=== PATIENT | male | born 1945 | race Caucasian/White ===

== ENCOUNTER 2020-06-13 22:54 | Emergency (ER) | payer MEDICARE, OTHER ==
[~2020-06-13] VITALS: Ht 170.2 cm; Wt 92.4 kg
--- NOTE | 2020-06-13 22:58 | PHYS DOC ---
Past History Past Medical History: Bronchitis, COPD, Hypertension Past Medical History Ulcerative colitis Past Surgical History: Knee Replacement, Other Past Surgical History Reported nl heart cath 3 yrs ago- Smoking: Quit Greater Than 1 Year General Adult HPI: HPI: "... I have been really short of breath this past week...get winded.. just walki ng across the yard..or one flight of stairs.. I got bad lungs..I did quit smoking about a year ago.. but I still got the COPD.. and sometimes I have to use my inhaler ... Sometimes need a course of antibiotics or steroids but have not had to for a long time...".." I did get the COVID test at [facility]...".." the drive up one.. "..." I could not lay down tonight .. too s hort of breath..." Patient is a 74 year old male who presents with above hx and complaints of marked increase of dyspnea and nonproductive cough in the past week.. Does have a history of prior episodes of COPD exacerbation. Patient did quit smoking approximately a year ago. Patient reportedly had a chest x-ray that was abnormal [address] Gonzales felt was related to his heart. Subsequently underwent heart cath at the [facility]. Reportedly that heart cath showed no blockage or concerning cardiac abnormalities. Patient does have a history of hypertension, ulcerative colitis, arthritis,. Patient retired from the . Was exposed to agent orange. Over [id number] smoking history. The patient denies any recent travel outside the [place] area. No specific ill contacts. Patient did get flu vaccination this season. Patient not recently been on any antibiotics or steroids. Patient does use an Atrovent inhaler occasionally for COPD symptoms. Pt. follows with [facility]. Review of Systems: Review of Systems: Constitutional: Denies fever or chills Eyes: Denies change in visual acuity HENT: Denies nasal congestion or sore throat Respiratory: Complains of cough and shortness of breath Cardiovascular: Denies chest pain or edema GI: Denies abdominal pain, nausea, vomiting, bloody stools or diarrhea : Denies dysuria Musculoskeletal: Denies back pain or joint pain Integument: Denies rash Neurologic: Denies headache, focal weakness or sensory changes Endocrine: Denies polyuria or polydipsia Lymphatic: Denies swollen glands Psychiatric: Denies depression or anxiety Family History: Family History: Noncontributory to presentation Current Medications: Current Meds: See nursing for home meds Allergies: Allergies: Meperidine Physical Exam: PE: Constitutional: Moderate acute distress, non-toxic appearance. [] HENT: Normocephalic, atraumatic, bilateral external ears normal, oropharynx moist, no oral exudates, nose normal. [] Eyes: PERRLA, EOMI, conjunctiva normal, no discharge. [] Neck: Normal range of motion, no tenderness, supple, no stridor. [] Cardiovascular:Heart rate regular rhythm, no murmur, PMI to left Lungs & Thorax: Bilateral breath sounds equal apex with few scattered wheezes. There are decreased breath sounds left base on auscultation [] Abdomen: Bowel sounds normal, soft, no tenderness, no masses, no pulsatile masses. Obese Skin: Warm, dry, no erythema, no rash. [] Back: No tenderness, no CVA tenderness. [] Extremities: No tenderness, no cyanosis, no clubbing, ROM intact, no edema. Arthritic changes. Right knee surgical scar.. No cording appreciated Neurologic: Alert and oriented X 3, normal motor function, normal sensory function, no focal deficits noted. [] Psychologic: Affect anxious , judgement normal, mood normal. [] EKG: EKG: My interpretation EKG shows a sinus rhythm at 79 bpm. There is some nonspecific contour changes inferior leads. But no findings of acute STEMI or contralateral changes. [] Radiology/Procedures: Radiology/Procedures: [[address] [address] IMAGING REPORT Signed PATIENT: CRAIG GARCIA ACCOUNT: [id number] : 1945 LOCATION: ER AGE: 74 SEX: M EXAM STATUS: REG ER ORD. PHYSICIAN: BHUMI YUN MD REASON: dyspnea PROCEDURE: PORTABLE CHEST 1V XR CHEST 1V 06/14/2020 1:39 AM INDICATION: Dyspnea COMPARISON: None available TECHNIQUE: Portable frontal view of the chest is provided. FINDINGS: The cardiomediastinal silhouette is within normal limits. Lungs are clear. Mild elevation left hemidiaphragm which may be chronic with adjacent compressive atelectasis. There are no significant pleural effusions. There is no pulmonary vascular congestion. No pneumothorax. No suspicious osseous abnormality. IMPRESSION: There is no acute cardiopulmonary process. There is mild chronic appearing elevation left hemidiaphragm. Electronically signed by: Isha Holman MD (06/14/2020 2:03 AM) [facility] DICTATED AND SIGNED BY: ISHA HOLMAN MD DATE: 06/14/20202 CC: BHUMI YUN MD; PAUL GONZALES MD ~MTH0 0 ][place] [address] IMAGING REPORT Signed PATIENT: CRAIG GARCIA ACCOUNT: [id number] : 1945 LOCATION: ER AGE: 74 SEX: M EXAM STATUS: REG ER ORD. PHYSICIAN: BHUMI YUN MD REASON: Marked dyspnea, COUGH, OMNI 350, 100ml PROCEDURE: CT ANGIOGRAPHY CHEST PQRS Compliance Statement: One or more of the following individualized dose reduction techniques were utilized for this examination: 1. Automated exposure control 2. Adjustment of the mA and/or kV according to patient size 3. Use of iterative reconstruction technique CTA CHEST 06/14/2020 3:[address] angiography chest with contrast 06/14/2020 3:43 AM INDICATION: Marked dyspnea. Cough. COMPARISON: None available TECHNIQUE: Axial CT images of the chest were obtained after the intravenous administration of nonionic contrast. Coronal and sagittal reformats are provided. Maximum intensity projection images of the thoracic vasculature are provided. FINDINGS: The thyroid gland is normal in appearance. There are no pathologically enlarged axillary, mediastinal or hilar lymph nodes. The heart size is within normal limits. No significant pericardial effusion. Thoracic aorta is normal in course and caliber. Mild calcified atheromatous plaque involving the coronary vessels. There is adequate opacification of the pulmonary arterial system. There there are no filling defects within the pulmonary arterial system to suggest acute or chronic pulmonary embolus. CENTRILOBULAR pulmonary emphysema. There is a 4 mm solid noncalcified pulmonary nodule in the right middle lobe (series 4, image 96). There is wedge-shaped consolidative changes the left lung base which may represent atelectasis and/or infiltrate in the appropriate clinical setting. There is thickening along the left major fissure. Volume loss noted in the left lung with elevation left hemidiaphragm. There are no pulmonary infiltrates. There are no pleural effusions. No pulmonary vascular congestion or pneumothorax. Visualized portions of the upper abdomen are within normal limits. No suspicious osseous lesions are visualized. Osseous hemangiomas are identified at T1 and T6. IMPRESSION: There is no evidence for acute or chronic pulmonary embolism. There is elevation left hemidiaphragm with adjacent wedge-shaped consolidative change may represent atelectasis and/or infiltrate. Thickening along the left major fissure is noted and may represent scarring, atelectasis or pulmonary infiltrate. Short-term follow-up radiograph could be of benefit potential resolution. 4 mm solid noncalcified pulmonary nodule identified in the right middle lobe. Fleischner guidelines for incidentally detected pulmonary nodules suggests no routine follow-up for low risk patients and optional CT at 12 months for high risk patients with solid noncalcified pulmonary nodules less than 6 mm in size. Electronically signed by: Isha Holman MD (06/14/2020 4:29 AM) [facility] DICTATED AND SIGNED BY: ISHA HOLMAN MD DATE: 06/14/20 0423 CC: BHUMI YUN MD; PAUL GONZALES MD ~MTH0 0 Heart Score: HEART Score for Chest Pain: HEART Score for Chest Pain Response (Comments) Value History Moderately Suspicious 1 ECG Nonspecific Repolarizatio 1 Age > 65 2 Risk Factors 1 or 2 Risk Factors 1 Troponin < Normal Limit 0 Total 5 Risk Factors: Risk Factors: DM, Current or recent (<one month) smoker, HTN, HLP, family history of CAD, obesity. Risk Scores: Score 0 - 3: 2.5% MACE over next 6 weeks - Discharge Home Score 4 - 6: 20.3% MACE over next 6 weeks - Admit for Clinical Observation Score 7 - 10: 72.7% MACE over next 6 weeks - Early Invasive Strategies Course & Med Decision Making: Course & Med Decision Making Pertinent Labs and Imaging studies reviewed. (See chart for details) Patient take Zithromax 250 mg a day for 5 days. Patient take prednisone 50 mg daily for 5 days. Patient use MDI 2 puffs 4 times a day. Patient wear clonidine patch until follow-up with Dr. Gonzales. Review ED record with Dr. Gonzales. Recommend repeat chest x-ray in 1 to [address] chest in 6 months to evaluate for pulmonary nodules. Must make sure the left lower atelectasis/infiltrate has resolved with antibiotics. Consider pulmonary co nsult. Return if any concerns. Wear a mask covering your nose and mouth anytime you are away from home. Follow-up Covid results collected yesterday. Follow-up blood culture. Impression: 1. Dyspnea 2. COPD exacerbation 3. Left lower lobe pneumonia-(versus atelectasis versus scarring versus mass) 4. Accelerated hypertension [] Dragon Disclaimer: Dragon Disclaimer: This electronic medical record was generated, in whole or in part, using a voice recognition dictation system. Departure Departure: Referrals: PAUL GONZALES MD (PCP) Scripts Prednisone (PREDNISONE) 50 Mg Tablet 50 MG PO DAILY for bronchitis,copd for 5 Days, #5 TAB Prov: BHUMI YUN MD 06/14/20 Azithromycin (ZITHROMAX) 250 Mg Tablet 250 MG PO DAILY for ANTI-BIOTIC for 5 Days, #5 TAB 0 Refills Prov: BHUMI YUN MD 06/14/20 Dragon Disclaimer This chart was dictated in whole or in part using Voice Recognition software in a busy, high-work load, and often noisy Emergency Department environment. It may contain unintended and wholly unrecognized errors or omissions. Dragon Disclaimer This chart was dictated in whole or in part using Voice Recognition software in a busy, high-work load, and often noisy Emergency Department environment. It may contain unintended and wholly unrecognized errors or omissions. BHUMI YUN MD Jun 13, 2020 22:58
[2020-06-14] MEDS ORDERED: ALBUTEROL SULFATE 8GM INHALER. INH ONE (01:30)
[2020-06-14] MEDS ORDERED: IV RINGERS SOLUTION,LACTATED 1,000 ML IV SCH (01:30)
[2020-06-14] MEDS ORDERED: ASPIRIN CHEWABLE 81 MG TABLET. PO ONE (01:30)
[2020-06-14] MEDS ORDERED: methylPREDNISolone SOD SUCC PF 125 MG/2 ML VIAL. IV ONE (01:45)
[2020-06-14] MEDS ORDERED: AZITHROMYCIN 250 MG TABLET. PO ONE (01:45)
[2020-06-14 01:47] LABS: BASO % 1 % (0-3); EOS # 0.2 x10^3/uL (0.0-0.7); EOS % 3 % (0-3); HEMATOCRIT 42.8 % (39.0-53.0); HEMOGLOBIN 14.5 g/dL (13.0-17.5); LYMPH # 1.3 x10^3/uL (1.0-4.8); LYMPH % 18 % (24-48); MEAN CORPUSCULAR HEMOGLOBIN 34 pg (25-35); MEAN CORPUSCULAR HGB CONC 34 g/dL (31-37); MEAN CORPUSCULAR VOLUME 99 fL (79-100); MONO # 0.6 x10^3/uL (0.0-1.1); MONO % 8 % (0-9); NEUT # 5.3 x10^3uL (1.8-7.7); NEUT % 71 % (31-73); PLATELET COUNT 220 x10^3/uL (140-400); RED BLOOD COUNT 4.31 x10^6/uL (4.30-5.70); RED CELL DISTRIBUTION WIDTH 12.7 % (11.5-14.5); WHITE BLOOD COUNT 7.5 x10^3/uL (4.0-11.0)
--- NOTE | 2020-06-14 02:06 | RAD ---
XR CHEST 1V 06/14/2020 1:39 AM INDICATION: Dyspnea COMPARISON: None available TECHNIQUE: Portable frontal view of the chest is provided. FINDINGS: The cardiomediastinal silhouette is within normal limits. Lungs are clear. Mild elevation left hemidi aphragm which may be chronic with adjacent compressive atelectasis. There are no significant pleural effusions. There is no pulmonary vascular congestion. No pneumothora x. No suspicious osseous abnormality. IMPRESSION: There is no acute cardiopulmonary process. There is mild chronic appearing elevation left hemidiaphragm. Electronically signed by: Meg Wong MD (06/14/2020 2:03 AM) [facility]
[2020-06-14 02:37] LABS: CALCIUM 8.7 mg/dL (8.5-10.1); GFR 72.6; POTASSIUM 3.5 mmol/L (3.5-5.1)
[2020-06-14 02:44] LABS: ALBUMIN 3.6 g/dL (3.4-5.0); DIRECT BILIRUBIN 0.1 mg/dL (0.0-0.2); TOTAL BILIRUBIN 0.3 mg/dL (0.2-1.0); TOTAL PROTEIN 7.3 g/dL (6.4-8.2)
[2020-06-14 03:07] LABS: INFLUENZA A PATIENT NEGATIVE (NEGATIVE); INFLUENZA B PATIENT NEGATIVE (NEGATIVE)
[2020-06-14] MEDS ORDERED: CONTRAST GIVEN. MC PRN (04:00)
[2020-06-14] MEDS ORDERED: IOHEXOL 350 MG/ML 100 ML VIAL. IV ONE (04:00)
--- NOTE | 2020-06-14 04:32 | RAD ---
PQRS Compliance Statement: One or more of the following individualized dose reduction techniques were utilized for this examinat ion: 1. Automated exposure control 2. Adjustment of the mA and/or kV according to patient size 3. Use of iterative reconstruction technique CTA CHEST 06/14/2020 3:[address] angiography chest with contrast 06/14/2020 3:43 AM INDICATION: Marked dyspnea. Cough. COMPARISON: None available TECHNIQUE: Axial CT images of the chest were obtained after the intravenous administration of nonioni c contrast. Coronal and sagittal reformats are provided. Maximum intensity projection images of the t horacic vasculature are provided. FINDINGS: The thyroid gland is normal in appearance. There are no pathologically enlarged axillary, mediastinal or hilar lymph nodes. The heart size is within normal limits. No significant pericardial effusion. T horacic aorta is normal in course and caliber. Mild calcified atheromatous plaque involving the coron verena vessels. There is adequate opacification of the pulmonary arterial system. There there are no filling defects within the pulmonary arterial system to suggest acute or chronic pulmonary embolus. CENTRILOBULAR pulmonary emphysema. There is a 4 mm solid noncalcified pulmonary nodule in the right m iddle lobe (series 4, image 96). There is wedge-shaped consolidative changes the left lung base which may represent atelectasis and/or infiltrate in the appropriate clinical setting. There is thickening along the left major fissure. Volume loss noted in the left lung with elevation left hemidiaphragm. There are no pulmonary infiltrates. There are no pleural effusions. No pulmonary vascular congestion or pneumothorax. Visualized portions of the upper abdomen are within normal limits. No suspicious osseous lesions are visualized. Osseous hemangiomas are identified at T1 and T6. IMPRESSION: There is no evidence for acute or chronic pulmonary embolism. There is elevation left hemidiaphragm with adjacent wedge-shaped consolidative change may represent a telectasis and/or infiltrate. Thickening along the left major fissure is noted and may represent scar ring, atelectasis or pulmonary infiltrate. Short-term follow-up radiograph could be of benefit potent ial resolution. 4 mm solid noncalcified pulmonary nodule identified in the right middle lobe. Fleischner guidelines f or incidentally detected pulmonary nodules suggests no routine follow-up for low risk patients and op tional CT at 12 months for high risk patients with solid noncalcified pulmonary nodules less than 6 m m in size. Electronically signed by: Meg Wong MD (06/14/2020 4:29 AM) [facility]
[2020-06-14 04:53] LABS: CLARITY,URINE CLEAR; COLOR,URINE YELLOW
[2020-06-14 04:54] LABS: BACTERIA,URINE 0 /HPF (0-FEW); BILIRUBIN,URINE NEG (NEG); GLUCOSE,URINE NEG (NEG); NITRITE,URINE NEG (NEG); RBC,URINE 0 /HPF (0-2); SQUAMOUS EPITHELIAL CELL,UR OCC /LPF; UROBILINOGEN,URINE 0.2 mg/dL (0.2 mg/dL); WBC,URINE OCC /HPF (0-4)
[2020-06-14] MEDS ORDERED: cloNIDine TTS-2 1 PATCH PATCH TD ONE ×2 (04:58→05:15)
[2020-06-14 04:59] LABS: BARBITURATES NEG (NEG); BENZODIAZEPINES NEG (NEG); CANNABINOIDS NEG (NEG); COCAINE NEG (NEG); METHADONE NEG (NEG); OPIATES NEG (NEG); PHENCYCLIDINE NEG (NEG)
[2020-06-14] MEDS ORDERED: AZIT250T PO (04:59)
[2020-06-14] MEDS ORDERED: PRED50TA PO (04:59)
[2020-06-14 05:00] VITALS: BP 187/98
[2020-06-14 05:13] LABS: AMPHETAMINE/METHAMPHETAMINE NEG (NEG)
--- NOTE | 2020-06-14 07:32 | EKG ---
[address] [address] Test Date: 2020-06-14 Test Time: 01:55:45 Pat Name: CRAIG GARCIA Department: Room: Gender: M Account Manager Trainee: BRIDGETT : 1945 Requested By: BHUMI YUN Order Number: [id number] Reading MD: Measurements Intervals Russell Rate: 79 P: 20 MN: 160 QRS: 40 QRSD: 88 T: 26 QT: 380 QTc: 442 Interpretive Statements SINUS RHYTHM QRS(T) CONTOUR ABNORMALITY CONSISTENT WITH INFERIOR INFARCT PROBABLY OLD ABNORMAL ECG RI6.02 No previous ECG available for comparison
== END 2020-06-14 05:10 | disposition home or self-care (01) ==
LOC: ER 22:54
DX: J44.1 Chronic obstructive pulmonary disease with (acute) exacerbation (principal); J18.1 Lobar pneumonia, unspecified organism; I10 Essential (primary) hypertension; Z87.891 Personal history of nicotine dependence
CPT/HCPCS: 36415; 71045; 71275; 80048; 80076; 80307; 81001; 82550; 83605; 83690; 83735; 83880; 84443; 84484; 85025; 85379; 85610; 85730; 87040; 87804; 93005; 94640; 96361; 96374; 99285; J2930; J7120; Q9967; 94664